=== PATIENT | female | born 1980 | race Caucasian/White ===

== ENCOUNTER 2018-03-29 13:03 | Emergency (ER) | payer MEDICAID ==
[2018-03-29] MEDS: LIDOCAINE 1% (MDV) 10 ML INJ INJ (13:51)
[2018-03-29] MEDS: HYDROCODONE/APAP (5/325) TAB PO (13:51)
== END 2018-03-29 14:48 | disposition home or self-care (01) ==
LOC: FTE 13:03
DX: L02.31 Cutaneous abscess of buttock (principal)
CPT/HCPCS: 10061; 99284-25

== ENCOUNTER 2018-04-01 08:42 | Emergency (ER) | payer MEDICAID | END 2018-04-01 09:09 | disposition home or self-care (01) | LOC: FTE 08:42 | DX: L02.31 Cutaneous abscess of buttock (principal) | CPT/HCPCS: 99283; Z7502 ==